=== PATIENT | male | born 1970 | race Caucasian/White ===

== ENCOUNTER → 2024-02-17 | Outpatient (CLI) | payer BC ==
[2024-02-17 11:54] LABS: Partial Thromboplastin Time 29.7 sec (22.0-30.0)
--- NOTE | 2024-02-17 12:03 | XR ---
EXAMINATION TYPE: XR chest 2V DATE OF EXAM: 02/17/2024 11:33 AM COMPARISON: Chest radiographs from 02/17/2024 CLINICAL INDICATION: Male, 53 years old with history of PRE SURGICAL; lumbar spine surgery. TECHNIQUE: XR chest 2V Frontal and lateral views of the chest. FINDINGS: Lungs/Pleura: There is no evidence of pleural effusion, focal consolidation, or pneumothorax. Pulmonary vascularity: Unremarkable. Heart/mediastinum: Cardiomediastinal silhouette is unremarkable. Musculoskeletal: No acute osseous pathology. Other findings: None IMPRESSION: No acute cardiopulmonary disease/process. [facility], , 02/17/2024 12:01 PM
[2024-02-17 15:02] LABS: Basophils # (A) 0.04 X 10*3/uL (0.00-0.10); Basophils % (A) 0.4 %; Eosinophils # (A) 0.09 X 10*3/uL (0.04-0.35); HCT 50.5 % (39.6-50.0); HGB 16.9 g/dL (13.0-17.0); Lymphocytes # (A) 1.99 X 10*3/uL (0.90-5.00); Lymphocytes % (A) 21.8 %; MCHC 33.5 g/dL (32.0-37.0); MCV 92.7 FL (80.0-97.0); Mean Platelet Volume 11.8 FL (9.5-12.2); Monocytes # (A) 0.96 X 10*3/uL (0.20-1.00); Monocytes % (A) 10.5 %; NRBC Per 100 WBC 0 X 10*3/uL (0.00-0.01); Neutrophils # (A) 5.98 X 10*3/uL (1.80-7.70); Neutrophils % (A) 65.8 %; Platelet Count 209 X 10*3/uL (140-440); RBC 5.45 X 10*6/uL (4.40-5.60); RDW 12.8 % (11.5-14.5); WBC 9.11 X 10*3/uL (4.50-10.00)
[2024-02-17 15:26] LABS: Appearance,Urine Clear (Clear); Bilirubin,Urine Negative (Negative); Blood,Urine Negative (Negative); Color,Urine Yellow (Yellow); Ketones,Urine Negative (Negative); Nitrite,Urine Negative (Negative); PH, Urine 7.5; Specific Gravity,Urine 1.021 (1.001-1.030)
[2024-02-17 15:35] LABS: Bacteria,Urine None Seen (None Seen)
[2024-02-17 16:13] LABS: INR 1.2 (<1.2); Prothrombin Time 12.3 sec (10.0-12.5)
[2024-02-17 16:16] LABS: Blood Urea Nitrogen 20.5 mg/dL (9.0-27.0); Calcium 9.3 mg/dL (8.7-10.3); Carbon Dioxide 23.2 mmol/L (21.6-31.8); Chloride 102 mmol/L (96-109); Glucose 101 mg/dL (70-110); Potassium 4.5 mmol/L (3.5-5.5); Sodium 140 mmol/L (135-145)
== END | disposition home or self-care (01) ==
LOC: LABPAT 10:32
PROVIDERS: ATTEND Physician Assistant
DX: Z01.818 Encounter for other preprocedural examination (principal); M48.07 Spinal stenosis, lumbosacral region; M51.27 Other intervertebral disc displacement, lumbosacral region; Z22.322 Carrier or suspected carrier of Methicillin resistant Staphylococcus aureus
CPT/HCPCS: 36415; 71046; 80048; 81001; 85025; 85610; 85730; 86850; 86900; 86901; 87070; 93005

== ENCOUNTER 2024-02-29 06:40 | Day surgery (SDC) | payer BC, OTHER ==
[~2024-02-29 06:40] MED LIST: ceFAZolin 1,000 MG in SODIUM CHLORIDE 0.9% IRRIGATIO 1,000 ML IRRIGATION PRN
[2024-02-29] MEDS: DEXAMETHASONE SOD PHOSPHATE 4 MG/ML 1 ML VIAL IV ONE (07:54)
[2024-02-29] MEDS: LACTATED RINGERS 1,000 ML IV SCH (07:55)
[2024-02-29] MEDS: IV FLUID CONTINUATION 1,000 ML IV ONE ×2 (07:57→07:58)
[2024-02-29] MEDS: ONDANSETRON 4 MG/2 ML VIAL IVP ONE (07:57)
[2024-02-29] MEDS ORDERED: TRANEXAMIC 1,000 MG/100ML-NACL 1,000 MG in SALINE 1 100ML.BAG IVPB PRN (08:01)
[2024-02-29] MEDS ORDERED: ROCURONIUM 10 MG/ML (5 ML VIAL) IV ONE (09:13)
[2024-02-29] MEDS ORDERED: MIDAZOLAM 2 MG/2 ML VIAL ONE (09:13)
[2024-02-29] MEDS ORDERED: PROPOFOL 10 MG/ML 20 ML VIAL IV ONE (09:13)
[2024-02-29] MEDS ORDERED: PHENYLEPHRINE 10 MG/ML VIAL ONE (09:13)
[2024-02-29] MEDS ORDERED: KETAMINE HCL IN 0.9 % NACL 50 MG/5 ML SYRINGE ONE (09:13)
[2024-02-29] MEDS ORDERED: LIDOCAINE 1% INJ 10MG/ML (20 ML MDV) ONE (09:13)
[2024-02-29] MEDS ORDERED: fentaNYL (PF) 50 MCG/ML 2 ML AMP ONE (09:13)
[2024-02-29] MEDS ORDERED: GLYCOPYRROLATE 0.2 MG/ML 2 ML VIAL ONE (09:13)
[2024-02-29] MEDS ORDERED: SUCCINYLCHOLINE CHLORIDE 200 MG/10 ML VIAL IV ONE (09:13)
[2024-02-29] MEDS ORDERED: HYDROmorphone (PF) 1 MG/ML ONE (09:13)
[2024-02-29] MEDS ORDERED: TRANEXAMIC 1,000 MG/100ML-NACL PREMIX BAG ONE (09:13)
[2024-02-29] MEDS ORDERED: NEOSTIGMINE 1 MG/ML 10 ML VIAL ONE (09:13)
[2024-02-29] MEDS: ceFAZolin 3 GM in SODIUM CHLORIDE 0.9% 100 ML IVPB PRN (09:18)
[2024-02-29] MEDS: ceFAZolin 1,000 MG in SODIUM CHLORIDE 0.9% IRRIGATIO 1,000 ML IRRIGATION PRN (09:25)
[2024-02-29] MEDS: LIDOCAINE 1%-EPI 1:100,000 20 ML VIAL SQ ONE (09:57)
[2024-02-29] MEDS: methylPREDNISolone ACETATE 40 MG/ML 1 ML VIAL MISCELLANE ONE (12:17)
[2024-02-29] MEDS: LACTATED RINGERS 1,000 ML IV ONE (12:32)
[2024-02-29] MEDS ORDERED: BENZOCAINE/MENTHOL LOZENG 1 EACH LOZENGE MUCOUS MEM PRN (13:14)
[2024-02-29] MEDS ORDERED: ONDANSETRON 4 MG/2 ML VIAL IVP PRN (13:15)
--- NOTE | 2024-02-29 13:34 | P.OP ---
Date of Procedure: 02/29/24 Preoperative Diagnosis: Herniated nucleus pulposus and spinal stenosis L5-S1, spinal stenosis L2-3, left lower extreme radiculopathy, neurogenic claudication Morbid obesity Postoperative Diagnosis: Same Anesthesia: GETA Pathology: none sent Condition: stable Disposition: PACU Description of Procedure: DESCRIPTION OF PROCEDURE(S): BRIEF OPERATIVE NOTE Preoperative Diagnosis: Herniated nucleus pulposus and spinal stenosis L5-S1, spinal stenosis L2-3, left lower extreme radiculopathy, neurogenic claudication Morbid obesity Postoperative Diagnosis: Same Procedure: Laminectomy and decompression L2-3 through a separate incision Laminectomy decompression L5-S1 Computer CT navigation aided Minimally invasive Posterior lateral decompression and facet fusion L5-S1 Minimally invasive Transforaminal lumbar interbody fusion for a 360 fusion L5-S1 Discectomy for decompression L5-S1 Placement of interbody graft L5-S1 Use of computer navigation for fusion Local autogenous bone grafting Aspiration of bone marrow from the vertebral body pedicle Use of bone graft extenders Surgeon: Dr. Mackey Zipper Measurer: Roderick ARMSTRONG who is present throughout the entire the case persistence during positioning, dissection, exposure, visualization, and all crucial elements of the case as well as closure. Anesthesia: General anesthesia per Dr. Parsons Estimated blood loss: Approximately 150 mL Complications: None apparent Components implanted: K2M minimally invasive [place] pedicle screw system withscrews measuring 6.5 mm in diameter to rods one expandable interbody cage with 10 mL of osteo amp bio4 bone graft substitute and 30 mL of the BX bone fibers to supplement the local autogenous bone graft and bone marrow aspirate Disposition: To recovery room in good stable condition. OPERATIVE INDICATIONS The patient has had severe issues at their lower extremity in her lower back over the past several years with significant worsening over the past several months. Over the past few months the patient had pain at their back and their lower extremities. The patient is having severe radicular symptoms at their lower extremity with weakness over an S1 distribution on the left side which correlated well with his imaging studies. He was also having some evidence of neurogenic claudication and was found to have significant central stenosis at L2-3 which she felt was correlating with a number of symptoms as well. He was not having symptoms of instability in his lower back and we had long discussions in regards to a number of areas in his lumbar spine including the known listhesis at L3-4. We discussed the possibility of doing decompression and multilevel fusion versus the possibility of isolated decompression fusion at L5- S1 with isolated decompression L2-3 while leaving the L3-4 space intact without surgery at this point. He understood that it was uncertain as to the future of the status for L3-4 but we may be able to alleviate his primary symptoms by isolating the pain generators at L5-S1 and at L2-3. The patient understood this and we answered all her questions as best as possible.. The patient is having significant pain in their back. They are unable to obtain any comfort. We did aggressive conservative treatment with medications therapy and interventional pain management however thery were not having any relief. The patient also showed evidence of a listhesis with some dynamic instability. The patient has been through conservative treatment. We discussed various treatment options including surgery, and the patient wishes to proceed with surgery We discussed the risk, patient's alternatives and benefits of surgery including but not limited to, risk of bleeding risk of infection, risk of need for further surgery, risk of decreased, loss of motion, muscle function, malunion nonunion, hardware failure, nerve damage, paralysis, heart attack, blindness and . They understood issues with the current pandemic and the possibility of exposure. OPERATIVE SUMMARY After discussing all the risks, patient alternatives and benefits at length, the patient elected to proceed with surgical intervention, signed informed consent, and presented for their procedure. The patient was seen and examined in the preoperative holding area and the surgical site was marked. The patient was given antibiotics and brought to the operating room. The patient was sedated and intubated by anesthesia in standard fashion. The patient was positioned on to the operating room table in a prone position on the appropriate frame which was well-padded and well molded. We were careful to pad any bony prominences and pressure points. We were careful to maintain the patient's cervical spine and good neutral alignment and position throughout. The patient was prepped and draped in a normal standard fashion. An appropriate timeout and keystone protocol performed. We were able to proceed with the surgery. The local wound area was infiltrated with local anesthetic. The patient has morbid obesity and each aspect of the case including positioning dissection exposure visualization decompression and closure was increased in time due to patient's body habitus and morbid obesity. Over the right iliac crest I was able to make small stab incisions and establish a guidepin screw fixation to the iliac crest 2. I was able place the computer referencing device over the guidepins to establish an appropriate reference point for the Ziem CT navigation. We then were able to place patient in an appropriate drape and do a navigation spin for visualization and 3-D reconstruction of the lumbar spine. I was able utilize C-arm guidance and navigation to establish appropriate position over the pedicles bilaterally at the appropriate levels at L5-S1. With the appropriate levels confirmed was able to make small incisions over the appropriate pedicle sites bilaterally. Utilizing the computer navigation device I was able to establish bony landmarks at the right iliac crest for a bony reference point for the navigation device. I was able to establish a Jamshidi needle over the lateral aspect of the pedicle and advanced the trocar into the pedicle being careful not to breech superiorly inferiorly medially or laterally using computer navigation device. Position was confirmed regularly with AP and lateral images on C-arm and with the computer navigation device at the appropriate levels bilaterally. I was able to establish the trocar into the pedicle appropriately into the posterior aspect of the vertebral body bilaterally at the appropriate levels. This was done at each of the pedicle positions and each of the vertebrae. At the superior vertebrae I was able to take approximately 15 mL of bone aspiration for use later in the case to supplement the allograft and autograft bone. I was able place the guidewire into the trocar and into the vertebral body appropriately under C-arm guidance. Dissection was taken down over the wire to the appropriate starting position for the screw placed. The appropriate length screw was chosen, threaded over the guidewire and screwed appropriately into the pedicle and vertebral body under C- arm guidance in excellent alignment and position with good bony purchase. This is done at each of the screw sites at the appropriate levels at L5 and S1. With the screws intact I extended the incision to connect the screw hole sites on the most symptomatic side. I dissected down to establish access over the pars and lamina to the base of the spinous process. I was able to expose the facet joint. The capsule the facet was taken down and showed some facet arthrosis at the joint. I was able to use a combination of curettes and Kerrison rongeurs and a high-speed drill to take down the facet joint and do a facetectomy. I was able get excellent foraminal decompression and central decompression with undermining across midline to perform a laminectomy centrally and contralaterally. As able get good central decompression. The ligamentum flavum was taken down to further decompress centrally and at bilateral neural foramen. I was able to expose the disc space and visualize the traversing nerve root. Note was made of some disc protrusion and disc herniation that was abutting the traversing nerve root at the level causing further compression of the nerve root. I was able to establish a annulotomy at the appropriate level protecting soft tissue and neural structures. Note was made of some disc desiccation at the disc. I performed a complete discectomy with accommodation of curettes and rasps and scrapers. I was able get good endplate preparation at the disc space. I sized for the appropriate size interbody spacer protecting the soft tissue and neural structures. The wound was copiously irrigated and escobedo ctioned dry. There is no evidence of any dural tear or leak. I was able to pack the disc space at L5-S1 with local autogenous bone graft as well as a small amount of bone graft which was also placed into the interbody cage itself. Protecting the soft tissue structures and neural structures I was able place the interbody cage in good alignment and good position with good fit and fill at the interbody space. Position was confirmed with C-arm guidance. Good hemostasis maintained. There is no evidence of any dural tear or leak. The wound was irrigated and suctioned dry. With the hardware intact, intraoperative C-arm imaging was again taken which showed good alignment and position of the hardware at the appropriate levels. We were then able to measure, contour and place the rods and appropriate hardware bilaterally. I was able to place capcrews, tighten them down, and torque them with the torque screwdriver appropriately. With this intact I was able to place the local autogenous bone graft with additional bone graft enhancer as necessary into the posterior lateral gutters over the decorticated transverse processes and facet joints on the contralateral side. The remainder of the bone graft was placed over the facet joint on the contralateral side after taking down the facet joint capsule. With the bone graft intact, a stable construct, and good decompression at the appropriate levels, we were able to proceed with closure. Good hemostasis was maintained. There is no evidence of dural tear or leak. The fascia was closed for a watertight closure. he subcuticular tissue was closed with absorbable suture. At this point we used C-arm guidance to establish appropriate level at L2-3 to perform decompression at that level. Through a separate midline incision approximately 3 cm in length I dissected down to the spinous processes and dissect down over the interlaminar space at L2-3. C arm fluoroscopy was utilized to establish the appropriate level positively at L2-3 and I was able to proceed with the laminectomy. Laminectomy was performed with a combination of high-speed burs curettes and Kerrison rongeurs and a ball-tipped feeler. Note was made of significant ligamentum thickening and facet arthrosis with spurring. I was able to provide a good central decompression with bilateral foraminal decompression. Good decompression was noted without any evidence of dural tear or leak. Good hemostasis was maintained. The wound s bilaterally 4 L5-S1 and at the midline for L2-3 were cleaned and dried and dressed with the appropriate dressing. The drapes were broken down. The patient was gently rolled back onto their hospital bed being careful to maintain their cervical spine and good neutral alignment and position. They were woken up by anesthesia, extubated, and brought to the recovery room in good stable condition. The patient will be admitted to the hospital for appropriate postoperative care, medical management and monitoring. We will continue to follow them closely about the postoperative course.
[2024-02-29] MEDS: HYDROmorphone 0.5 MG/0.5 ML SYRINGE IVP PRN ×2 (13:56→20:01)
--- NOTE | 2024-02-29 15:53 | FL ---
EXAMINATION TYPE: FL guidance operating room, XR lumbar spine 2 or 3V DATE OF EXAM: 02/29/2024 12:43 PM COMPARISON: Pre Operative Images if available both CT/MRI or plain film CLINICAL INDICATION: Male, 53 years old with history of L2-L3 Laminectomy/L5-S1 Fusion; TECHNIQUE: FL guidance operating room, XR lumbar spine 2 or 3V, multiple fluoroscopic images provided for procedure. Total fluoroscopy time: 28 seconds Total submitted images to PACS: 5 DAP: 600.14 mGym2 Gycm2 uGym2 cGycm2 or equivalent. FINDINGS: IMPRESSION: 1. No evidence for intraoperative complication. 2. Please see the operative/procedural note for further details. [facility], , 02/29/2024 3:51 PM
[2024-02-29] MEDS: HYDROcodone/APAP 10-325MG 1 EACH TAB PO PRN (16:24)
[2024-02-29] MEDS: ceFAZolin 3 GM in SODIUM CHLORIDE 0.9% 100 ML IVPB SCH (16:24)
[2024-02-29] MEDS: CYCLOBENZAPRINE 10 MG TAB PO PRN (16:25)
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
[2024-02-29] MEDS: SODIUM CHLORIDE 0.9% 1,000 ML IV SCH (19:58)
[2024-02-29] MEDS: diazePAM 5 MG TAB PO PRN (22:18)
[2024-03-01] MEDS: HYDROmorphone 1 MG/ML 1 ML SYRINGE IVP PRN (01:57)
[2024-03-01] MEDS: SENNOSIDES-DOCUSATE SODIUM 1 EACH TAB PO SCH (08:05)
[2024-03-01 08:47] LABS: HCT 46.8 % (39.6-50.0); HGB 15.2 g/dL (13.0-17.0); MCH 30.7 pg (27.0-32.0); MCHC 32.5 g/dL (32.0-37.0); MCV 94.5 FL (80.0-97.0); Mean Platelet Volume 11.9 FL (9.5-12.2); NRBC Per 100 WBC 0 X 10*3/uL (0.00-0.01); Platelet Count 154 X 10*3/uL (140-440); RBC 4.95 X 10*6/uL (4.40-5.60); RDW 13.4 % (11.5-14.5)
[2024-03-01 08:56] LABS: BUN/Creat Ratio 13.67 Ratio (12.00-20.00); Blood Urea Nitrogen 16.4 mg/dL (9.0-27.0); Carbon Dioxide 24.8 mmol/L (21.6-31.8); Chloride 101 mmol/L (96-109); Glucose 122 mg/dL (70-110); Potassium 4.7 mmol/L (3.5-5.5); Sodium 138 mmol/L (135-145)
[2024-03-01 08:57] LABS: Calcium 8.3 mg/dL (8.7-10.3)
[2024-03-01 08:59] VITALS: BP 181/72; PULSE 85; TEMP 99.1
[2024-03-01 09:52] VITALS: RESP 18
[2024-03-01 10:57] LABS: Basophils # (A) 0.05 X 10*3/uL (0.00-0.10); Basophils % (A) 0.3 %; Eosinophils # (A) 0 X 10*3/uL (0.04-0.35); Eosinophils % (A) 0 %; Lymphocytes # (A) 1.59 X 10*3/uL (0.90-5.00); Monocytes # (A) 2.27 X 10*3/uL (0.20-1.00); Monocytes % (A) 12.9 %; Neutrophils % (A) 77.3 %; RBC Morphology Normal (Normal)
--- NOTE | 2024-03-01 12:37 | P.DS ---
Providers Date of admission: 02/29/2024 Expected date of discharge: 03/01/24 Attending physician: Coco Mackey Consults: 02/29/24 13:15 Consult Physician Routine Consulting Provider: Kane Palacios Consult Reason/Comments: Medical management Do you want consulting provider notified?: Yes Primary care physician: Madhu Jean - Discharge Diagnosis(es) (1) Lumbar spinal stenosis Current Visit: Yes Status: Acute (2) Status post lumbar spinal fusion Current Visit: Yes Status: Acute (3) Lumbar back pain with radiculopathy affecting left lower extremity Current Visit: Yes Status: Acute (4) Left leg weakness Current Visit: Yes Status: Acute (5) Neurogenic claudication Current Visit: Yes Status: Acute (6) Morbid obesity Current Visit: Yes Status: Acute (7) Sleep apnea Current Visit: Yes Status: Acute (8) Herniated nucleus pulposus, L5-S1 Current Visit: Yes Status: Acute (9) Lumbosacral stenosis Current Visit: Yes Status: Acute Hospital Course: This is a pleasant 53-year-old male who presented with L5-S1 herniated nucleus pulposus and spinal stenosis, L2-3 spinal stenosis, neurogenic claudication, and left lower extremity radiculopathy with weakness who failed outpatient conservative therapy. He was admitted for an L5-S1 minimally invasive posterior lateral decompression and fusion with transforaminal lumbar interbody fusion and L2-3 laminectomy with decompression. The patient tolerated the procedure well and did well postoperatively. He feels his left lower extremity symptoms have significantly improved postoperatively. He has some numbness and tingling but states his pain is much better controlled. He has some pain at the surgical sites at his lumbar spine but states his pain is also controlled. His pain is being controlled with oral medications. He has discontinued IV medications. His Christina catheter has been discontinued. He has been able to void independently. He has been able to ambulate the hallways with the assistance of a walker. He does have a walker for home use. Patient feels he is ready for discharge today. Condition on day of discharge stable. Patient will be discharged home. Patient was cleared preoperatively for surgery by Dr. Lei. Patient currently denies any nausea, vomiting, fever, or chills. Patient is eating and voiding freely without difficulty. Patient may shower Optifoam dressing intact. Patient may remove Optifoam dressing in 3 days and shower without a dressing at that time. Patient should refrain from driving until at least after their first follow-up appointment in the office. Patient should avoid excessive bending, lifting, and twisting; no lifting greater than 10 pounds. MAPS has been reviewed today, 03/01/2024, with an Overall Overdose Risk Score of 410. An "Opiod Start Talking" Form has been signed and placed in the patient's chart. A prescription has been written for hydrocodone 10 mg / 325 mg, 1 tab, every 6 hours, as needed for acute pain, dispense #24. Prescriptions also written for cyclobenzaprine 10 mg, 1 tab, 3 times daily, as needed for muscle spasm, dispense #60 and Senokot-S, 1 tab, twice daily, as needed for con stipation, dispense #60. Prescriptions are sent to the [facility] pharmacy located within [facility] per request of the patient. Patient's other medical diagnoses include morbid obesity and sleep apnea. Physical Exam on day of discharge: Patient is awake, alert, and oriented 3 Vital signs stable Good chest excursion with deep inspiration and expiration Abdomen soft nontender No signs or symptoms of DVT; no calf pain Extensor hallucis longus, plantarflexion, and dorsiflexion positive sustained bilateral lower extremities Incision sites are dry and intact; no erythema, purulence, or signs of infection Optifoam dressings remain intact Procedures: L5-S1 minimally invasive posterior lateral decompression and fusion with transforaminal lumbar interbody fusion and L2-3 laminectomy with decompression Patient Condition at Discharge: Stable Plan - Discharge Summary Discharge Rx Participant: No New Discharge Prescriptions: New HYDROcodone/APAP 10-325MG [[place] 10] 1 each PO Q6H PRN #24 tab PRN Reason: Pain Sennosides-Docusate Sodium [Senokot-S] 1 tab PO BID PRN #60 tablet PRN Reason: Constipation Cyclobenzaprine [Flexeril] 10 mg PO TID PRN #60 tab PRN Reason: Muscle Spasm No Action Super Beet (Unk) 1 tab PO DAILY Ibuprofen 800 mg PO Q8H PRN PRN Reason: Pain Vit D3k2(Unk) 1 tab PO DAILY Discharge Medication List Ibuprofen 800 mg PO Q8H PRN 02/23/24 [History] Super Beet (Unk) 1 tab PO DAILY 02/23/24 [History] Vit D3k2(Unk) 1 tab PO DAILY 02/23/24 [History] Cyclobenzaprine [Flexeril] 10 mg PO TID PRN #60 tab 03/01/24 [Rx] HYDROcodone/APAP 10-325MG [[place] 10] 1 each PO Q6H PRN #24 tab 03/01/24 [Rx] Sennosides-Docusate Sodium [Senokot-S] 1 tab PO BID PRN #60 tablet 03/01/24 [Rx] Follow up Appointment(s)/Referral(s): Coco Mackey DO [Doctor of Osteopathic Medicine] - 03/13/24 1:30 pm Activity/Diet/Wound Care/Special Instructions: 1. Patient may shower with Optifoam dressing intact. 2. Patient may remove Optifoam dressing in 3 days and shower without a dressing at that time. 3. Patient should refrain from driving until at least after their first follow- up appointment in the office. 4. Patient should avoid excessive bending, twisting, lifting; avoid overhead lifting; no lifting greater than 10 pounds 5. Take medications as prescribed 6. Patient should avoid anti-inflammatory medications over the next 6 weeks postoperatively 7. Patient may utilize walker to aid in ambulation as needed 8. Do not soak in tub Discharge Disposition: HOME SELF-CARE
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
== END 2024-03-01 14:00 | disposition home or self-care (01) ==
LOC: OR 06:40 → 4SSUR 13:09 → OR 03-01 14:00
PROVIDERS: ATTEND Orthopaedic Surgery Orthopaedic Surgery of the Spine
DX: M48.07 Spinal stenosis, lumbosacral region (principal); M54.16 Radiculopathy, lumbar region; G47.33 Obstructive sleep apnea (adult) (pediatric); K21.9 Gastro-esophageal reflux disease without esophagitis; E66.01 Morbid (severe) obesity due to excess calories; Z68.35 Body mass index [BMI] 35.0-35.9, adult
CPT/HCPCS: 97161; 80048; 85025; 72100; 22633; 63052; 22859; 20930; 20936; C1713 ×2; C1762; J0690 ×3; J2405; J1171 ×2; J1010